=== PATIENT | male | born 1990 | race American Indian/Alaskan Native ===

== ENCOUNTER 2018-05-28 17:56 | Emergency (ER) | payer SELFPAY ==
[2018-05-28 18:08] VITALS: BP 168/87; PULSE 73; RESP 16; TEMP 97.7; O2SAT 100
[2018-05-28 18:09] VITALS: BMI 34.3
--- NOTE | 2018-05-28 18:32 | ED PDOC ---
Arrival/HPI - General Time Seen by Provider: 05/28/18 18:15 - History of Present Illness Narrative History of Present Illness (Text): 27 y/o M c no PMHx p/w L 1st toe pain x 4 days. Patient states accidentally dropped a sink onto it. Has been taking iburofen and acetaminoiphen with relief. Denies numbness or weakness. Declining pain medication in ED. Past Medical History - Psychiatric Hx Psychophysiologic Disorder: No Hx Substance Use: No Family/Social History Family/Social History: No Known Family HX Smoking Status: Never Smoked Hx Alcohol Use: No Hx Substance Use: No Allergies/Home Meds Allergies/Adverse Reactions: Allergies No Known Allergies Allergy (Verified 05/28/18 18:16) Home Medications: Home Meds Medication Instructions Recorded Confirmed No Known Home Med 05/28/18 05/28/18 Review of Systems - Review of Systems Constitutional: absent: Fevers Respiratory: absent: SOB Physical Exam - Physical Exam Narrative Physical Exam (Text): Gen: NAD MSK: L 1st toe tender without edema or limited ROM. Vital Signs Temp Pulse Resp BP Pulse Ox 05/28/18 18:08 97.7 F 73 16 168/87 H 100 Medical Decision Making ED Course and Treatment: XR shows distal tuft fracture. Marcello taped to 2nd digit, post op shoe, f/u podiatry, continue oral pain medications. - RAD Interpretation Radiology Orders: 05/28/18 18:16 FOOT LEFT GREAT TOE ROUTINE [RAD] Stat Disposition/Present on Arrival - Present on Arrival Any Indicators Present on Arrival: No History of DVT/PE: No History of Uncontrolled Diabetes: No Urinary Catheter: No History of Decub. Ulcer: No History Surgical Site Infection Following: None - Disposition Have Diagnosis and Disposition been Completed?: Yes Diagnosis: Toe fracture Disposition: HOME/ ROUTINE Disposition Time: 18:41 Patient Plan: Discharge Condition: STABLE Discharge Instructions (ExitCare): Toe Fracture Referrals: Pancho Magana DPM [Staff Provider] - Follow up with primary
--- NOTE | 2018-05-29 09:56 | RAD ---
PROCEDURE: Radiographs of the left great toe. TECHNIQUE:: AP radiograph of the left foot, with oblique and lateral view of the left great toe. COMPARISON: None. FINDINGS: BONES: Comminuted intra-articular fracture distal phalanx left great toe with surrounding soft tissue swelling. JOINTS: Normal. SOFT TISSUES: Normal. OTHER FINDINGS: None. IMPRESSION: Comminuted intra-articular fracture distal phalanx left great toe with surrounding soft tissue swelling
== END 2018-05-28 19:03 | disposition home or self-care (01) ==
LOC: ED 17:56
DX: S92.422A Displaced fracture of distal phalanx of left great toe, initial encounter for closed fracture (principal); W20.8XXA Other cause of strike by thrown, projected or falling object, initial encounter